=== PATIENT | female | born 1995 | race Caucasian/White ===

== ENCOUNTER → 2016-07-14 | Emergency (ER) | payer BC ==
[~2016-07-14] MED LIST: CALNTAB; IRON18TA2 PO; OXYC1TAB63 PO
--- NOTE | 2016-07-14 07:55 | HHI.DCPOC ---
Discharge Care Plan Report Symptoms to Your Doctor -Temperate above 100.5 degrees -Redness, of incision or excessive or foul smelling drainage -Unusual pain or calf pain -Increased vaginal bleeding -Painful or difficulty urinating -Feelings of extreme sadness or anxiety after 2 weeks Goals to Promote Your Health * To prevent worsening of your condition and complications * To maintain your health at the optimal level Directions to Meet Your Goals Take your medications as prescribed Follow your dietary instruction Follow activity as directed Ensure plenty of rest for recovery Drink fluids for hydration Keep your appointments as scheduled Take your immunizations and boosters as scheduled If your symptoms worsen call your PCP, if no PCP go to Urgent Care Center or Emergency Room Smoking is Dangerous to Your Health. Avoid second hand smoke Call the 24-hour crisis hotline for domestic abuse at Isaiah Posada MD Jul 14, 2016 07:54
--- NOTE | 2016-07-14 08:37 | MH ---
cc: ZAKI MEZA DATE OF ADMISSION: 07/14/2016 REASON FOR EVALUATION 1. at 37-38 weeks. 2. Possible ROM. 3. Possible labor. HISTORY OF PRESENT ILLNESS A 21-year-old single white female, para 1-0-0-1, LMP of 10/23/2015, EDC of 07/29/2016. course was benign. She had a clear mucous-like discharged about 10:30 p.m. last evening. She has had some intermittent contractions and pelvic pressure and came in for evaluation. Her heart tones are normal. Heart rate tracing is normal. Vital signs are stable. The abdomen is gravid, nontender. The cervix is 2-3, 50%, vertex intact -2. Her AmniSure was negative and she has been monitored for over an hour with only sporadic contractions. There has been no change in her cervix. RECOMMENDATIONS Discharge home, rest, hydrate. Should she have signs of labor, early leakage of fluid or any abnormal symptoms, to return to the hospital. If not, she had office visit in three days. Zaki Meza MD JAW/SSB /7:50 AM /8:29 AM
== END | disposition home or self-care (01) ==
LOC: HOBED 06:11
DX: O26.893 Other specified pregnancy related conditions, third trimester (principal); R10.2 Pelvic and perineal pain; N85.8 Other specified noninflammatory disorders of uterus; Z3A.38 38 weeks gestation of pregnancy
CPT/HCPCS: 59025; 84112

== ENCOUNTER 2016-07-22 06:12 | Inpatient (IN) | payer BC ==
[2016-07-22] VITALS (58 sets, daily range): BP systolic 95–133; BP diastolic 49–87; PULSE 84–159; RESP 18–20; TEMP 97.8–98.8
[~2016-07-22] VITALS: Ht 162.6 cm; Wt 70.8 kg
[~2016-07-22 06:12] MED LIST changes: -IRON18TA2 PO; -OXYC1TAB63 PO
[2016-07-22] MEDS ORDERED: IRON18TA2 PO (06:25)
[2016-07-22] MEDS ORDERED: MINERAL OIL 10 ML VIAL TOP PRN (06:45)
[2016-07-22] MEDS ORDERED: NS 500 ML BOLUS IV PRN (06:45)
[2016-07-22] MEDS ORDERED: OXYTOCIN 30 UNITS 500ML PREMIX IV ONE (06:45)
[2016-07-22] MEDS: LACTATED RINGER'S 1000 ML IV SCH ×2 (06:45→14:45)
[2016-07-22] MEDS ORDERED: ONDANSETRON HCL 4 MG/2 ML VIAL IV PRN (06:45)
[2016-07-22] MEDS ORDERED: CITRIC ACID-SODIUM CITRATE LIQ 30 ML UDC PO SCH (06:45)
[2016-07-22] MEDS ORDERED: LIDOCAINE HCL 1% 50 ML VIAL INFIL PRN (06:45)
[2016-07-22] MEDS ORDERED: OXYTOCIN 30 UNITS/NS 500ML PREMIX IV SCH (06:45)
[2016-07-22] MEDS ORDERED: NS 1000 ML IV PRN (06:45)
[2016-07-22] MEDS ORDERED: LACTATED RINGER'S 1000 ML BOLUS IV PRN (06:45)
[2016-07-22] MEDS ORDERED: LIDOCAINE HCL 1% 50 ML VIAL I-DERMAL PRN (06:45)
[2016-07-22 07:23] LABS: AUTOMATED NEUTROPHIL # 9.4 TH/MM3 (1.8-7.7); BASOPHIL # 0.1 TH/MM3 (0-0.2); BASOPHIL % 0.7 % (0.0-2.0); EOSINOPHIL # 0.2 TH/MM3 (0-0.4); EOSINOPHIL % 1.2 % (0.0-4.0); HEMATOCRIT 30.5 % (35.0-46.0); HEMO FLAGS DIFF FINAL; LYMPH % 24.6 % (9.0-44.0); LYMPHOCYTE # 3.6 TH/MM3 (1.0-4.8); MEAN CORPUSCULAR HEMOGLOBIN 26.3 PG (27.0-34.0); MEAN CORPUSCULAR HGB CONC 32.5 % (32.0-36.0); MONO % 8.8 % (0.0-8.0); NEUT % 64.7 % (16.0-70.0); PLATELET COUNT 298 TH/MM3 (150-450); RED BLOOD COUNT 3.77 MIL/MM3 (4.00-5.30); WHITE BLOOD COUNT 14.6 TH/MM3 (4.0-11.0)
[2016-07-22 07:47] LABS: BACTERIA, URINE OCC /hpf; BLOOD, URINE NEG (NEG); GLUCOSE,URINE NEG (NEG); KETONE, URINE NEG (NEG); NITRITE,URINE NEG (NEG); SQUAMOUS EPITHELIAL CELL URINE 14 /hpf (0-5); TRANSITIONAL EPI CELLS, URINE <1 /hpf; URINE COLOR LIGHT-YELLOW (YELLW/STRAW)
[2016-07-22 07:50] LABS: COMMENT (UR) CULTURE INDICATED; CULTURE IF INDICATED CULTURE INDICATED
--- NOTE | 2016-07-22 10:43 | MH ---
cc: ZAKI MEZA DATE OF ADMISSION 07/22/2016 ADMISSION DIAGNOSIS at term. HISTORY OF PRESENT ILLNESS The patient is a 21-year-old white female para 1-0-0-1 with an EDC of 07/29/2016 by early dates ultrasound. Her course has been benign. Past OB history is normal. Previous term delivery. ALLERGIES None SURGERIES None TRANSFUSIONS None SOCIAL HISTORY She is . Alcohol, tobacco and drugs none. PHYSICAL EXAM A well-nourished well-developed white female. VITAL SIGNS: Stable. HEENT: Exam is normal. CHEST: Clear. HEART: Regular rate. BREASTS: Enlarged with . ABDOMEN: Gravid. EFW of 3200 grams. PELVIC: Cervix is 3, 70 vertex intact. AROM clear fluid. ASSESSMENT As above. PLAN She is now admitted for Pitocin induction of labor, epidural p.r.n. anticipate good progression to a normal delivery. Strep culture was negative. MD BREONNA Alarcon/RANDY /8:31 AM /10:38 AM
[2016-07-22] MEDS ORDERED: fentaNYL 2MCG-BUPIV 0.125% INJ 100 ML ONE (10:50)
[2016-07-22] MEDS ORDERED: DO NOT ADMINISTER ANTICOAGULANTS XX PRN (11:30)
[2016-07-22] MEDS ORDERED: NO SYSTEM NARCOTICS XX PRN (11:30)
[2016-07-22] MEDS ORDERED: ePHEDrine/NS 25 MG/5 ML SYR IV PRN (11:30)
[2016-07-22] MEDS ORDERED: fentaNYL 2MCG-BUPIV 0.125% 100 ML EPIDURAL SCH (11:30)
[2016-07-22] MEDS ORDERED: DIPHTH/TETANUS/ACEL PERTUSSIS (BOOSTER) 0.5 ML VIAL/PFS IM ONE (16:00)
[2016-07-22] MEDS ORDERED: MEASLES, MUMPS, RUBELLA VACCINE 0.5 ML VIAL SQ ONE (16:00)
[2016-07-22] MEDS ORDERED: METHYLERGONOVINE MALEATE 0.2 MG/ML VIAL ONE (17:05)
[2016-07-22] MEDS ORDERED: oxyCODONE/ACETAMINOPHEN 5 MG/325 MG TAB PO PRN (17:15)
[2016-07-22] MEDS ORDERED: WITCH HAZEL 50%/GLYCERIN 12.5% 40 PAD JAR TOPICAL PRN (17:15)
[2016-07-22] MEDS ORDERED: BENZOCAINE 20% TOPICAL SPRAY 60 ML CAN TOPICAL PRN (17:15)
[2016-07-22] MEDS ORDERED: ACETAMINOPHEN 325 MG TAB PO PRN (17:15)
[2016-07-22] MEDS ORDERED: ONDANSETRON ODT 4 MG TAB PO PRN (17:15)
[2016-07-22] MEDS ORDERED: ZOLPIDEM TARTRATE 5 MG TAB PO PRN (17:15)
[2016-07-22] MEDS ORDERED: DOCUSATE SODIUM 50 MG/SENNA 8.6 MG TAB PO PRN (17:15)
[2016-07-22] MEDS ORDERED: ALUMINUM/MAGNESIUM/SIMETH 30 ML CUP PO PRN (17:15)
[2016-07-22] MEDS ORDERED: SODIUM CHLORIDE 0.9% FLUSH 5 ML FLUSH IV PRN (17:15)
[2016-07-22] MEDS: IBUPROFEN 600 MG TAB PO PRN (18:33)
[2016-07-22] MEDS ORDERED: SODIUM CHLORIDE 0.9% FLUSH 5 ML FLUSH IV SCH (21:00)
[2016-07-23] MEDS: IBUPROFEN 600 MG TAB PO PRN ×4 (00:56→20:04)
[2016-07-23] MEDS: oxyCODONE/ACETAMINOPHEN 5 MG/325 MG TAB PO PRN ×3 (00:56→20:04)
[2016-07-23 06:06] LABS: AUTOMATED NEUTROPHIL # 10.8 TH/MM3 (1.8-7.7); BASOPHIL # 0.1 TH/MM3 (0-0.2); BASOPHIL % 0.6 % (0.0-2.0); EOSINOPHIL # 0.2 TH/MM3 (0-0.4); EOSINOPHIL % 1.3 % (0.0-4.0); HEMATOCRIT 25.3 % (35.0-46.0); HEMO FLAGS DIFF FINAL; LYMPH % 25.3 % (9.0-44.0); LYMPHOCYTE # 4.3 TH/MM3 (1.0-4.8); MEAN CELL VOLUME 80.9 FL (80.0-100.0); MEAN CORPUSCULAR HEMOGLOBIN 26.4 PG (27.0-34.0); MEAN CORPUSCULAR HGB CONC 32.6 % (32.0-36.0); MONO % 9.1 % (0.0-8.0); NEUT % 63.7 % (16.0-70.0); PLATELET COUNT 228 TH/MM3 (150-450); RED BLOOD COUNT 3.13 MIL/MM3 (4.00-5.30); RED CELL DISTRIBUTION WIDTH 14.2 % (11.6-17.2); WHITE BLOOD COUNT 16.9 TH/MM3 (4.0-11.0)
[2016-07-23 07:40] VITALS: BP 101/57; PULSE 80; RESP 18; TEMP 96.5
[2016-07-23 19:35] VITALS: BP 104/64; PULSE 81; RESP 20; TEMP 98.4
[2016-07-24] MEDS ORDERED: OXYC1TAB63 PO (07:55)
--- NOTE | 2016-07-24 07:55 | HHI.DCPOC ---
Discharge Care Plan Report Symptoms to Your Doctor -Temperate above 100.5 degrees -Redness, of incision or excessive or foul smelling drainage -Unusual pain or calf pain -Increased vaginal bleeding -Painful or difficulty urinating -Feelings of extreme sadness or anxiety after 2 weeks Goals to Promote Your Health * To prevent worsening of your condition and complications * To maintain your health at the optimal level Directions to Meet Your Goals Take your medications as prescribed Follow your dietary instruction Follow activity as directed Ensure plenty of rest for recovery Drink fluids for hydration Keep your appointments as scheduled Take your immunizations and boosters as scheduled If your symptoms worsen call your PCP, if no PCP go to Urgent Care Center or Emergency Room Smoking is Dangerous to Your Health. Avoid second hand smoke Call the 24-hour crisis hotline for domestic abuse at Isaiah Posada MD Jul 24, 2016 07:55
[2016-07-24 08:00] VITALS: BP 106/51; PULSE 77; RESP 16; TEMP 98
[2016-07-24] MEDS: IBUPROFEN 600 MG TAB PO PRN ×2 (08:00→14:33)
[2016-07-24] MEDS: oxyCODONE/ACETAMINOPHEN 5 MG/325 MG TAB PO PRN (08:00)
--- NOTE | 2016-07-27 21:43 | MD ---
cc: ZAKI MEZA. ADMISSION DATE: 07/22/2016 DISCHARGE DATE: 07/24/2016 ADMISSION DIAGNOSIS Term . DISCHARGE DIAGNOSIS Term , delivered. HISTORY OF PRESENT ILLNESS A 21-year-old white female para 1-0-0-1, LMP of 10/23/2015, EDC of 07/2016 by dates ultrasound. Her preop course was benign. Preop labs include Rh positive, nonreactive, rubella immune, rubeola immune, SULLIVAN negative, Pap negative, glucose screen was normal. Strep culture was negative. HOSPITAL COURSE Admitted for induction of labor in view of her term status. favorable cervix and desire for delivery on 07/22/2016. Received Pitocin induction, epidural anesthesia and progressed to a spontaneous vaginal delivery on the evening of 07/22/2016 over an intact perineum. Viable, vigorous male, Apgars 9 and 9. weight 8 pounds even. The baby's name was Maxi and she was breast feeding. did well. Discharged home in excellent condition on 07/24/2016. She was carefully instructed in , perineal, circumcision care. Return to see me in 6 weeks and call if abnormal pain, bleeding, temperature, signs of infection or any problems healing. She was given prescriptions for Percocet 5 one to two p.o. q.4 hours p.r.n. pain, #40. MD BREONNA Alarcon/ELVIS /8:01 AM /9:31 PM [id number] DARCIE
== END 2016-07-24 15:44 | disposition home or self-care (01) | DRG 775 ==
LOC: UNDOADMIN 06:12 → H2EA 06:12 → H1EA 20:45
PROVIDERS: ADMIT Obstetrics & Gynecology; ATTEND Obstetrics & Gynecology
PROC: 0HQ9XZZ Repair Perineum Skin, External Approach (ICD-10-PCS; principal; 2016-07-22)
PROC: 10E0XZZ Delivery of Products of Conception, External Approach (ICD-10-PCS; 2016-07-22)
PROC: 00HU33Z Insertion of Infusion Device into Spinal Canal, Percutaneous Approach (ICD-10-PCS; 2016-07-22)
PROC: 3E0R3CZ (ICD-10-PCS; 2016-07-22)
DX: O70.0 First degree perineal laceration during delivery (principal); Z37.0 Single live birth; Z3A.00 Weeks of gestation of pregnancy not specified
CPT/HCPCS: 59025; 81001; 85025; 86900; 86901; 87086; 90715; J2210; J2405; J2590; J7120